=== PATIENT | male | born 1955 | race Caucasian/White ===

== ENCOUNTER 2019-09-11 12:20 | Outpatient (CLI) | payer MEDICARE, SELFPAY ==
--- NOTE | ~2019-09-11 | XR_ITS ---
EXAMINATION: XR chest 2V DATE: 09/11/2019 12:46 INDICATION: Essential hypertension TECHNIQUE: PA and lateral views of the chest are obtained. COMPARISON: 04/02/2012 FINDINGS: The lungs are free of acute opacities. There is no pleural effusion or pneumothorax. The ca rdiomediastinal silhouette is normal. There is moderate thoracic spondylosis. There are changes of in terval right total shoulder arthroplasty. IMPRESSION: 1. No acute cardiopulmonary abnormality. Reviewed, dictated and finalized at location A.
== END 2019-09-11 12:21 | disposition home or self-care (01) ==
PROVIDERS: PCP Family Medicine; Visit Provider Family Medicine
DX: I10 Essential (primary) hypertension (principal); R06.00 Dyspnea, unspecified
CPT/HCPCS: 71046

== ENCOUNTER 2019-10-18 15:42 | Outpatient (CLI) | payer MEDICARE, SELFPAY ==
--- NOTE | ~2019-10-18 | CT_ITS ---
EXAMINATION: CT brain wo/w con DATE: 10/18/2019 16:27 INDICATION: Headache TECHNIQUE: Computed tomography (CT) of the head was performed without and with 100 mL Omnipaque-350 i ntravenous contrast. Sagittal and coronal reconstructions were performed. Automated exposure control and iterative reconstruction technique were employed. The dose-length product was 1210.67 mGy-cm. COMPARISON: None FINDINGS: No acute intracranial hemorrhage, acute infarction or abnormal extra axial fluid collection. Ventricl es are normal and symmetric. No mass/mass effect. Moderate mucosal thickening in the bilateral ethmoi d and maxillary sinuses change of bilateral maxillary sinus antral window procedures. Small left and trace right pleural effusions. Orbits are normal. No abnormally enhancing lesions identified. No evid ent cerebral artery aneurysm or hemodynamically significant stenosis. IMPRESSION: 1. Normal brain. No acute intracranial process or abnormally enhancing lesions. 2. Sinus disease with moderate mucosal thickening in the bilateral ethmoid and maxillary sinuses. Reviewed, dictated and finalized at location A.
[2019-10-18 16:17] LABS: Estimated Glomerular Filt Rate > 60
== END 2019-10-18 15:43 | disposition home or self-care (01) ==
PROVIDERS: PCP Family Medicine; Visit Provider Family Medicine
DX: R51 Headache (principal); J32.9 Chronic sinusitis, unspecified
CPT/HCPCS: 36415; 70470; Q9967

== ENCOUNTER 2021-05-26 01:03 | Day surgery (SDC) | payer MEDICARE, SELFPAY ==
[2021-05-13 14:27] VITALS: BMI 28.0
[2021-05-26 07:41] VITALS: BP 144/88; PULSE 79; RESP 18; TEMP 37.4; O2SAT 99
--- NOTE | 2021-05-26 07:45 | P.PNAN_ITS ---
Anes - Initial Pre Proc Eval Procedure: Operation Date: 05/26/21 08:30 Proposed Procedures p Screening Colonoscopy - Delta Michael MD Date/Time: 05/26/21 07:45 Surgeon: Delta Michael MD Pre Op Diagnosis: neoplasm screening Patient Data Age: 66 Gender: M Height: 1.83 m Weight: 92.3 kg Last Vital Signs Temp 37.4 C 05/26/21 07:41 Pulse 79 05/26/21 07:41 Resp 18 05/26/21 07:41 BP 144/88 H 05/26/21 07:41 Pulse Ox 99 05/26/21 07:41 Allergies Allergy/AdvReac Type Severity Reaction Status Date / Time No Known Allergies Allergy Mild Verified 05/26/21 07:40 Home Medications Medication Instructions Recorded Confirmed Type No Home Medications 04/01/21 05/13/21 History Patient hx anesthesia problems: none Family hx anesthesia problems: none Results Review: All pre-operative results and documents have been reviewed as part of the pre-operative evaluation. [facility] Past Medical History Medical History (Updated 04/01/21 @ 08:54 by Nikolas Sim MD) Essential (primary) hypertension Mixed hyperlipidemia Osteoarthritis Screen for colon cancer Vitamin D deficiency, unspecified Surgical History Surgical History (Updated 05/26/21 @ 07:46 by Anjel Moreno MD) H/O colonoscopy H/O wrist surgery History of ankle surgery History of elbow surgery History of shoulder surgery Family History Family History Father Hypertension Family history of diabetes mellitus in first degree relative Family history of coronary artery disease Mother Family history of malignant neoplasm Social History Social History Smoking status: Never smoker Alcohol intake: current Living arrangements: alone Spiritual care concerns: No Anes - Eval Final PreProcedure Day of Procedure 05/26/21 07:45 Patient weight: overweight Heart: regular rate and rhythm Lungs: clear to auscultation Airway: Mallampati scale class II Neurological: alert and oriented Last oral intake: >/= 8 hours ASA classification: II Emergent: no Anesthetic plan: proceed Anesthesia type and monitoring: general GIVS and standard monitoring Results Review: All pre-operative results and documents have been reviewed as part of the pre-operative evaluation. Informed Consent: The patient's anesthetic plan and its attendant risks and benefits were discussed with the patient/family/POA. Questions were solicited and answers provided to the satisfaction of the patient/family/POA.
[2021-05-26] MEDS: LACTATED RINGERS 1,000 ML 150 ML IV CONT (07:46)
--- NOTE | 2021-05-26 08:05 | P.CONGI_ITS ---
Assessment and Plan Assessment and plan (1) Screen for colon cancer: Code(s): Z12.11 - Encounter for screening for malignant neoplasm of colon Status: Acute Assessment and Plan: Patient presents today for screening colonoscopy. Appears to be at average risk for colon polyps. GI Consult Note Consult date/time: 05/26/21 08:05 HPI: Nelson Maciel is a 66 year old male Presents for screening colonoscopy. Patient's current weight appetite bowel movements are normal. He denies abdom inal pain. He has had no bleeding. His last colonoscopy by Dr Blood in 2014 was unremarkable. Patient reports a very distant history of diverticulitis. Perhaps 10 years ago. His family history is noncontributory. Review of Systems Review of Systems: All systems reviewed & are unremarkable except as noted in HPI and below PMFSH Past Medical History Medical History (Updated 04/01/21 @ 08:54 by Nikolas Smi MD) Essential (primary) hypertension Mixed hyperlipidemia Osteoarthritis Screen for colon cancer Vitamin D deficiency, unspecified Surgical History Surgical History (Updated 05/26/21 @ 07:46 by Anjel Moreno MD) H/O colonoscopy H/O wrist surgery History of ankle surgery History of elbow surgery History of shoulder surgery Family History Family History Father Hypertension Family history of diabetes mellitus in first degree relative Family history of coronary artery disease Mother Family history of malignant neoplasm Social History Social History Smoking status: Never smoker Alcohol intake: current Living arrangements: alone Spiritual care concerns: No Meds Home Medications and Allergies Home Medications Medication Instructions Recorded Confirmed Type No Home Medications 04/01/21 05/13/21 History Allergies Allergy/AdvReac Type Severity Reaction Status Date / Time No Known Allergies Allergy Mild Verified 05/26/21 07:40 Vital Signs Vital Signs - 24 hr 05/26/21 07:41 Temperature 99.4 F Pulse Rate 79 Respiratory Rate 18 Blood Pressure 144/88 H Pulse Oximetry 99 Exam Narrative: Physical exam reveals patient be alert. Vital signs are stable. HEENT exam is unremarkable. Patient is anicteric. Lungs are clear to auscultation and percussion. Heart is without murmur or extra sounds. Abdominal exam bowel sounds are present soft nontender with no organomegaly. Digital external rectal exam is normal.
[2021-05-26 08:59] VITALS: BP 93/58; PULSE 58; RESP 16; O2SAT 100
[2021-05-26 09:09] VITALS: BP 104/69; PULSE 56; RESP 16; O2SAT 100
[2021-05-26 09:19] VITALS: BP 118/69; PULSE 54; RESP 18; O2SAT 100
== END 2021-05-26 09:30 | disposition home or self-care (01) ==
PROVIDERS: PCP Family Medicine; Visit Provider Internal Medicine Gastroenterology
PROC: 0DJD8ZZ Inspection of Lower Intestinal Tract, Via Natural or Artificial Opening Endoscopic (ICD-10-PCS; CPT 45378; principal; 2021-05-26 08:30)
DX: Z12.11 Encounter for screening for malignant neoplasm of colon (principal); K64.8 Other hemorrhoids; K57.30 Diverticulosis of large intestine without perforation or abscess without bleeding; I10 Essential (primary) hypertension; E78.2 Mixed hyperlipidemia; M19.90 Unspecified osteoarthritis, unspecified site; E55.9 Vitamin D deficiency, unspecified
CPT/HCPCS: G0121; J2704; J7120

== ENCOUNTER 2022-08-20 08:40 | Outpatient (CLI) | payer MEDICARE, SELFPAY ==
--- NOTE | ~2022-08-20 | XR_ITS ---
XR shoulder LT min 2V DATE: 08/20/2022 09:13 INDICATION: Chronic left shoulder pain TECHNIQUE: 4 views COMPARISON: None FINDINGS: No fracture or dislocation, periosteal reaction or bone destruction of the left shoulder. Chronic smoothly approximately 2 x 7.5 mm calcification is noted adjacent to the posterior aspect of the left humeral head. Old healed posterolateral left seventh rib fracture deformity. There is degenerative spurring of the thoracic spine. IMPRESSION: No left shoulder fracture, dislocation or bone destruction Reviewed, dictated and finalized at location L.
--- NOTE | ~2022-08-20 | XR_ITS ---
XR hip LT min 2V DATE: 08/20/2022 09:12 INDICATION: Anterior left hip pain TECHNIQUE: AP and lateral views of left hip COMPARISON: None FINDINGS: Mild left hip osteoid arthritis. No fracture, dislocation, avascular necrosis or bone destr uction of the left hip. Pubic symphysis and left sacroiliac joint are normally aligned. IMPRESSION: Mild left hip osteoarthritis Reviewed, dictated and finalized at location L.
--- NOTE | ~2022-08-20 | XR_ITS ---
XR lumbar spine 2-3V DATE: 08/20/2022 09:12 INDICATION: Back pain TECHNIQUE: AP, lateral, coned lateral lumbosacral views COMPARISON: None FINDINGS: There is moderate loss of height and mild anterior wedging of T12, likely due to old compre ssion fracture. There is degenerative change in the lower thoracic spine. Moderately severe degenerat j luis disc disease at T12-L1. Moderately prominent degenerative disease at L1-2. Mild degenerative disc disease at L2-3, L3-4, L4-5. There is degenerative change at the apophyseal joints particularly at L4-5 and L5-S1, with associated grade 1 anterolisthesis at L4-5. Included lower thoracic and lumbar pedicles are intact. The exception of T12, no fracture or bone debbie truction is noted. The sacroiliac joints are intact. IMPRESSION: Mild to moderate likely chronic compression fracture of T12 Multilevel degenerative disc disease, greatest at T12-L1 and L1-2 Grade 1 anterolisthesis at L4-5 due to degenerative change at the apophyseal joints Reviewed, dictated and finalized at location L. IMPRESSION: Mild to moderate likely chronic compression fracture of T12 Multilevel degenerative disc disease, greatest at T12-L1 and L1-2 Grade 1 anterolisthesis at L4-5 due to degenerative change at the apophyseal beatris ints
[2022-08-20 09:57] LABS: Hematocrit 45.1 % (42.0-52.0); Hemoglobin 14.7 g/dL (14.0-18.0); Mean Corpuscular HGB Conc 32.6 g/dl (32-36); Mean Corpuscular Hemoglobin 28.3 pg (26-34); Mean Corpuscular Volume 86.9 fl (80-100); Mean Platelet Volume 10.2 fl (7.4-10.4); Platelet Count Result 286 k/mm3 (150-375); Red Blood Count 5.19 M/mm3 (4.6-6.20); Red Cell Distribution Width 13.8 % (11.5-14.5)
[2022-08-20 10:07] LABS: Alanine Aminotransferase 20 U/L (6-50); Albumin Level 4.4 g/dL (3.5-5.1); Alkaline Phosphatase 55 U/L (38-126); Anion Gap 6 mmol/L (8-16); Aspartate Amino Transferase 30 U/L (17-59); Bilirubin,Total 0.6 mg/dL (0.2-1.3); Blood Urea Nitrogen 15 mg/dL (9-20); Calcium 8.8 mg/dL (8.4-10.2); Carbon Dioxide 25 mmol/L (22-30); Chloride 109 mmol/L (98-107); Cholesterol 155 mg/dL (0-200); Estimated Glomerular Filt Rate > 60; Glucose 101 mg/dL (65-110); HDL Direct 39 mg/dL; Potassium 4.4 mmol/L (3.4-5.0); Sodium 140 mmol/L (137-145); Triglycerides 104 mg/dL (<150)
[2022-08-20 10:18] LABS: LDL Cholesterol Direct 91 mg/dL
[2022-08-20 10:38] LABS: Prostate Specific Antigen 1.2 ng/mL (< OR = 4.0); Vitamin D 25 Hydroxy 39.8 ng/mL
== END 2022-08-20 08:41 | disposition home or self-care (01) ==
LOC: ANHIMG 08:54
PROVIDERS: PCP Family Medicine; Visit Provider Nurse Practitioner Family
DX: M16.12 Unilateral primary osteoarthritis, left hip (principal); M48.54XA Collapsed vertebra, not elsewhere classified, thoracic region, initial encounter for fracture; M43.16 Spondylolisthesis, lumbar region; I10 Essential (primary) hypertension; E78.2 Mixed hyperlipidemia; E55.9 Vitamin D deficiency, unspecified; Z12.5 Encounter for screening for malignant neoplasm of prostate
CPT/HCPCS: 36415; 72100; 73030; 73502; 80053; 80061; 82306; 84153; 84443; 85027; G0103

== ENCOUNTER 2023-07-15 06:50 | Outpatient (CLI) | payer MEDICARE, SELFPAY ==
--- NOTE | ~2023-07-15 | XR_ITS ---
Right Knee Technique: AP, lateral, and sunrise views were obtained. Clinical History: Pain Findings: No fracture or dislocation is seen. There is osteophyte formation, predominantly the medial joint line, intercondylar notch, and at the patella.. Soft tissues are unremarkable. No joint effusi on is seen. Impression: Degenerative change, as above. Reviewed, dictated and finalized at location M. Impression: Degenerative change, as above.
--- NOTE | ~2023-07-15 | XR_ITS ---
AP view of the pelvis and AP and lateral views of the right hip Clinical history: Pain Findings: No acute fracture or dislocation is seen. Osseous alignment is anatomic. There is mild spur ring at the superolateral acetabular margins. Soft tissues are unremarkable. Impression: Mild degenerative change of both hip joints. Reviewed, dictated and finalized at location . Impression: Mild degenerative change of both hip joints.
== END 2023-07-15 06:51 | disposition home or self-care (01) ==
PROVIDERS: PCP Physician Assistant Medical; Visit Provider Physician Assistant Medical
DX: M25.551 Pain in right hip (principal); G89.29 Other chronic pain; M25.561 Pain in right knee
CPT/HCPCS: 73502; 73562

== ENCOUNTER 2023-08-05 16:23 | Outpatient (CLI) | payer MEDICARE, SELFPAY ==
--- NOTE | ~2023-08-05 | MR_ITS ---
EXAMINATION: MR knee RT wo con DATE: 08/05/2023 17:17 INDICATION: Right knee pain TECHNIQUE: Magnetic resonance imaging (MRI) of the right knee was performed without intravenous contr ast. Sequences included coronal PD-weighted FSE, coronal PD-weighted FS FSE, sagittal T2-weighted FS E, sagittal PD-weighted FS FSE and axial PD weighted fat saturated FSE. COMPARISON: Right knee radiographs dated 07/15/2023 FINDINGS: Medial compartment: There is medial extrusion of the medial meniscal body with complex tear extending from the anterior b lisset to the posterior horn. There is full/near full-thickness chondral ulceration with underlying suba rticular edema-like signal change along portions of the anterior to central weightbearing medial femo ral condyle and at the medial margin of the medial tibial plateau. Lateral compartment: There is a tear, likely complex along the inner third of the body of the lateral meniscus is small re gion of partial-thickness chondral fissuring involving greater than 50% of the cartilage thickness bu t without degenerative subchondral changes at the posterior aspect lateral tibial plateau and smaller region at the central aspect of the anterior weightbearing lateral femoral condyle. Patellofemoral compartment: Partial-thickness chondral ulceration and fissuring with mild underlying cortical irregularity at the medial patellar facet and patellar apical ridge. Additional. Deep chondral ulceration with underlyin g cortical irregularity at the medial and lateral trochlea and intervening trochlear groove. Ligaments and tendons: Anterior and posterior cruciate ligaments are normal. The medial collateral ligament and fibular kvng ateral ligament complex are normal. The patellar tendon is normal. Mild distal quadriceps tendinopath y. The visualized medial and lateral hamstring tendons as well as the iliotibial band are normal. Fluid: Physiologic amount of fluid in the joint space with extension of a small amount of fluid along the po pliteal recess. No loose osteochondral bodies identified. Osseous/other: Bone alignment is normal. No fracture or pathologic marrow replacing process. IMPRESSION: 1. Complex tear of the body and posterior horn of the medial meniscus. 2. Small tear, likely complex involving the inner third of the body of the lateral meniscus. 3. Tricompartmental osteoarthritis, moderate to severe with high-grade chondral malacia the medial co mpartment, mild to moderate with additional high-grade chondromalacia in the patellofemoral compartme nt and mild with small regions of moderate grade chondromalacia in the lateral compartment. Reviewed, dictated and finalized at location A. IMPRESSION: 1. Complex tear of the body and posterior horn of the medial meniscus. 2. Small tear, likely complex involving the inner third of the body of the late ral meniscus. 3. Tricompartmental osteoarthritis, moderate to severe with high-grade chondral malacia the medial compartment, mild to moderate with additional high-grade ch ondromalacia in the patellofemoral compartment and mild with small regions of m oderate grade chondromalacia in the lateral compartment.
== END 2023-08-05 16:24 | disposition home or self-care (01) ==
PROVIDERS: PCP Family Medicine; Visit Provider Nurse Practitioner Family
DX: S83.231D Complex tear of medial meniscus, current injury, right knee, subsequent encounter (principal); X58.XXXD Exposure to other specified factors, subsequent encounter
CPT/HCPCS: 73721

== ENCOUNTER 2023-09-09 07:10 | Outpatient (CLI) | payer MEDICARE, SELFPAY ==
--- NOTE | ~2023-09-09 | CT_ITS ---
EXAMINATION: CT LE RT wo con DATE: 09/09/2023 09:22 INDICATION: Right knee osteoarthritis for preoperative planning. TECHNIQUE: High resolution computed tomography (CT) of the right lower extremity from the hip through the ankle was performed without intravenous contrast. Additional sagittal and coronal reconstruction s were performed. Automated exposure control and iterative reconstruction technique were employed. Th e dose-length product was 1656.31 mGy-cm. COMPARISON: Right knee radiographs dated 07/15/2023 and MRI dated 08/05/2023 FINDINGS: Bone alignment is normal. No suspected osteonecrosis. There is an age-indeterminate nondisplaced frac ture across the base of the medial intercondylar eminence which is not appreciated on the prior radio graphs. No fracture line is evident on the intervening MRI although the wall is mild increased marrow signal at this location which was interpreted as secondary to osteoarthritis with chondromalacia louise ng the medial side of the intercondylar eminence. No other lesions suspicious for fracture identified . There is severe osteoarthritis at the medial compartment of the right knee with regions of full-thick ness cartilage loss with subarticular eburnation and cystlike changes. At least mild osteoarthritis i n the lateral compartment with small marginal osteophytes at the periphery of the lateral compartment with small central subchondral osteophyte at the posterior medial aspect of the lateral tibial plate au suggesting overlying high-grade chondromalacia. Mild to moderate patellofemoral osteoarthritis wit h additional moderate size marginal osteophytes and and irregularity with a few small central subchon dral osteophytes at both the patellar and trochlear sides of the joint space consistent with addition al overlying high-grade chondromalacia. Additional mild osteoarthritis at the right hip, ankle subtalar and naviculocuneiform joints. There i s a 5.5 x 3.1 x 1.7 cm intramuscular lipoma within the soleus muscle. Musculature of the right lower limb and visualized right hemipelvis otherwise unremarkable. Physiologic amount fluid in the joint sp aces. No pathologically enlarged right pelvic or inguinal lymphadenopathy. IMPRESSION: 1. Small nondisplaced likely avulsion fracture of the medial intracondylar eminence at the right knee . There was some marrow edema at this location although without an evident fracture line on the prior MRI and this may be subacute. 2. Severe medial compartment predominant tricompartmental osteoarthritis at the right knee. Reviewed, dictated and finalized at location A. IMPRESSION: 1. Small nondisplaced likely avulsion fracture of the medial intracondylar chichi ence at the right knee. There was some marrow edema at this location although w ithout an evident fracture line on the prior MRI and this may be subacute. 2. Severe medial compartment predominant tricompartmental osteoarthritis at the right knee.
--- NOTE | 2023-09-09 07:30 | ECG_ITS ---
SEE SCANNED COPY FOR CONFIRMED REPORT MTDD
[2023-09-09 08:34] LABS: Hematocrit 46.7 % (42.0-52.0); Hemoglobin 15.2 g/dL (14.0-18.0)
[2023-09-09 08:39] LABS: Albumin Level 4.7 g/dL (3.5-5.1); Estimated Glomerular Filt Rate > 60; Glucose 97 mg/dL (65-110)
== END 2023-09-09 07:11 | disposition home or self-care (01) ==
LOC: ANHIMG 07:17
PROVIDERS: PCP Family Medicine; Visit Provider Orthopaedic Surgery
DX: Z01.818 Encounter for other preprocedural examination (principal); E78.2 Mixed hyperlipidemia; M17.11 Unilateral primary osteoarthritis, right knee; I10 Essential (primary) hypertension
CPT/HCPCS: 36415; 73700; 82040; 82565; 82947; 85014; 85018; 93005

== ENCOUNTER 2023-11-10 11:51 | Outpatient (CLI) | payer MEDICARE, SELFPAY ==
[2023-11-10 13:07] LABS: Basophils Absolute Auto 0.1 K/mm3 (0.0-0.1); Eosinophils Absolute Auto 0.3 K/mm3 (0-0.3); Eosinophils Percent Auto 3.8 % (0-4.4); Hematocrit 46.7 % (42.0-52.0); Hemoglobin 15.2 g/dL (14.0-18.0); Immature Granulocyte Absolute 0.03 K/mm3 (0.00-0.031); Immature Granulocyte Percent A 0.4 % (0-0.5); Lymphocytes Percent Auto 28.8 % (18.3-44.2); Mean Corpuscular HGB Conc 32.5 g/dl (32-36); Mean Corpuscular Hemoglobin 28.3 pg (26-34); Mean Corpuscular Volume 86.8 fl (80-100); Mean Platelet Volume 10.1 fl (7.4-10.4); Monocytes Absolute Auto 0.8 K/mm3 (0.1-0.6); Monocytes Percent Auto 10.6 % (2.6-8.5); Neutrophils Absolute Auto 4.2 K/mm3 (1.3-6.7); Neutrophils Percent Auto 55.4 % (45.5-73.1); Platelet Count Result 294 k/mm3 (150-375); Red Blood Count 5.38 M/mm3 (4.6-6.20); Red Cell Distribution Width 13.5 % (11.5-14.5); White Blood Count 7.7 K/mm3 (4.5-10.0)
[2023-11-10 13:25] LABS: Albumin Level 4.7 g/dL (3.5-5.1); Estimated Glomerular Filt Rate > 60; Glucose 86 mg/dL (65-110)
[2023-11-10 13:46] LABS: Urine Cotinine NEGATIVE
[2023-11-10 14:16] LABS: MRSA (PCR) NOT DETECTED (NOT DETECTE)
== END 2023-11-10 11:52 | disposition home or self-care (01) ==
LOC: ANHSURGERY 11:54
PROVIDERS: PCP Family Medicine; Visit Provider Orthopaedic Surgery
DX: Z01.818 Encounter for other preprocedural examination (principal); M17.11 Unilateral primary osteoarthritis, right knee
CPT/HCPCS: 80307; 82040; 82565; 82947; 83036; 85025; 87641

== ENCOUNTER 2023-12-02 01:11 | Day surgery (SDC) | payer MEDICARE, SELFPAY ==
[2023-11-10 11:25] VITALS: BP 144/82; PULSE 58; RESP 16; TEMP 37.2; O2SAT 99
[2023-11-10 11:59] VITALS: BMI 29.6
--- NOTE | 2023-11-10 12:13 | PC.NURSE ---
Report to the Outpatient Waiting Room, entrance under the green pavilion located off [facility], at time _0600_ on date _[id number]_. Planned Procedure Time: _0730_. Time changes happen often and if your time is changed the preop area will call you the afternoon before. - You and your visitor will be asked to self-screen and do not enter if you have any COVID symptoms. - A mask is optional within the hospital at this time. Patients may have clear liquids (water, carbonated beverages, clear teas, apple juice) until 3 hours prior to surgery with a maximum of 20 ounces. - No food from midnight until time of surgery Take the following medications with a SIP of water the morning of surgery: ___None DO NOT STOP ANY OF YOUR OTHER PRESCRIPTION MEDICATIONS PRIOR TO SURGERY ?EXCEPT THE FOLLOWING Medications to discontinue per physician Meloxicam Date to take last ixni___[id number] Please no make-up, nail french, hairspray, perfume, deodorant, or body powder the day of surgery. No jewelry (including any body piercings) or valuables the day of surgery, leave them at home. Please take a shower or bath the night before, or the morning of, surgery with an antibacterial soap. Wear comfortable, loose fitting clothing. - Jewelry must be removed prior to entering the operating room. Rings and piercings that are not removed may be cut off. - The hospital will not accept responsibility for valuables. - Please leave all valuables, including medications, at home the day of surgery. If you are going home after surgery, a licensed charter driver must drive you home. - NO public transportation without another adult if you receive anesthesia. - We recommend that an adult stay with you for 24 hours following discharge. - We also recommend that you do not drive, make important decision, drink alcoholic beverages, or take any drugs that were not prescribed by your health care provider for at least 24 hours after your discharge time. Follow any additional instructions given to you from your surgeon. If you or anyone in your household have experienced Covid symptoms in the past week, please notify your surgeon or the nurse liaison at the phone number below for possible testing. Telephone instructions given to _Nelson and Rox__and asked if any additional questions and then verbalized understanding. Patient advised to call surgeon office or pre surgery nurse liaison [phone] if any additional questions.
[2023-12-02] VITALS (8 sets, daily range): BP systolic 126–167; BP diastolic 68–90; PULSE 50–63; RESP 13–16; TEMP 36.6–37.2; O2SAT 97–100
--- NOTE | ~2023-12-02 | XR_ITS ---
[id number] Ordering provider: Vinny Ramos MD History: . RIGHT CUSTOM TKA, POST-OP . Comparison: None. FINDINGS: BONES: No acute fracture or dislocation. JOINT SPACES: Right total knee arthroplasty. SOFT TISSUES: Postoperative changes seen in the subcutaneous tissues. IMPRESSION: No acute osseous abnormality right knee. Consider MRI knee if there is concern for soft tissue internal derangement. Reviewed, dictated and finalized at location A.
[2023-12-02] MEDS: TRANEXAMIC ACID 1,000MG/ISO100 1,000 MG/100 ML BAG 200 MG IVPB (07:00)
[2023-12-02] MEDS: LACTATED RINGERS 1,000 ML 30 ML IV CONT ×2 (07:00→09:52)
--- NOTE | 2023-12-02 07:01 | WPDANESEPPF ---
Anes - Initial Pre Proc Eval Procedure: Operation Date: 12/02/23 07:30 Proposed Procedures p Right Custom Total Knee Arthroplasty - Vinny Ramos MD Date/Time: 12/02/23 07:01 Surgeon: Vinny Ramos MD Pre Op Diagnosis: primary oa right knee Patient Data Age: 68 Gender: M Height: 1.78 m Weight: 93.7 kg Last Vital Signs Temp 37.2 C 11/10/23 11:25 Pulse 58 L 11/10/23 11:25 Resp 16 11/10/23 11:25 BP 144/82 H 11/10/23 11:25 Pulse Ox 99 11/10/23 11:25 O2 Del Method Room Air 11/10/23 11:25 Allergies Allergy/AdvReac Type Severity Reaction Status Date / Time No Known Allergies Allergy Mild Verified 11/10/23 11:59 Home Medications Medication Instructions Recorded Confirmed Type meloxicam 15 mg tablet 15 mg PO DAILY #90 tabs 05/11/23 11/10/23 Rx Laboratory Tests 12/02/23 06:31 Blood Type Pending Antibody Screen Pending Patient hx anesthesia problems: other (slow to wake) Family hx anesthesia problems: none Results Review: All pre-operative results and documents have been reviewed as part of the pre-operative evaluation. [facility] Past Medical History Medical History BMI 28.0-28.9,adult Essential (primary) hypertension Mixed hyperlipidemia Osteoarthritis Screen for colon cancer Vitamin D deficiency, unspecified Surgical History Surgical History H/O colonoscopy H/O wrist surgery History of ankle surgery History of elbow surgery History of shoulder surgery Family History Family History Father Hypertension Family history of diabetes mellitus in first degree relative Family history of coronary artery disease Mother Family history of malignant neoplasm Diabetes mellitus Amputation of leg Sibling Diabetes mellitus Social History Social History Smoking status: Never smoker Second hand tobacco smoke exposure: Yes Alcohol intake: current Substance use: never Substance use type: does not use Do You Feel Safe in your Home?: Yes Lack of Transportation: No Lack of Food: Never True Current Housing: I Have Housing Concerned About Future Housing: No Difficulty Paying Gas/Electric Bills: No Difficulty Paying for Meds: No Currently Unemployed: No Education: High School Diploma/GED Difficulty w/ Childcare or Family Care: No Living arrangements: with family Occupation/Education: occupation Additional occupation/education comments: [employer]. Gender identity (if verbalized by the patient): Male Spiritual care concerns: No Anes - Eval Final PreProcedure Day of Procedure 12/02/23 07:01 Patient weight: overweight Heart: regular rate and rhythm Lungs: clear to auscultation Airway: Mallampati scale class II Neurological: alert and oriented Last oral intake: >/= 8 hours ASA classification: II Emergent: no Anesthetic plan: proceed Anesthesia type and monitoring: general LMA and standard monitoring Results Review: All pre-operative results and documents have been reviewed as part of the pre-operative evaluation. Informed Consent: The patient's anesthetic plan and its attendant risks and benefits were discussed with the patient/family/POA. Questions were solicited and answers provided to the satisfaction of the patient/family/POA.
[2023-12-02] MEDS: ACETAMINOPHEN 500 MG TABLET 1000 MG PO (07:10)
--- NOTE | 2023-12-02 07:13 | WPDHPUPDATE1 ---
History and Physical Update Update Date/Time: 12/02/23 07:13 History and Physical has been reviewed, including an updated exam of the patient. There are NO changes in the patient's condition. Risks, benefits, and alternatives have been discussed and questions answered. Patient agrees to proceed with procedure.
[2023-12-02] MEDS: ceFAZolin 2 GM/D5W 50 ML 2 GM/50 ML BAG IVPB (07:29)
--- NOTE | 2023-12-02 07:29 | WPDANESPNB ---
Anes - Peripheral Nerve Block Date/Time: 12/02/23 07:29 I have discussed with the patient/family/POA the placement of a peripheral nerve block for post-operative pain management, including associated risks, benefits, complications, and side effects. Alternative methods of post-operative analgesia were detailed. Questions were solicited and answers provided to the satisfaction of the patient/family/POA. Time-Out: A pre-procedural Time-Out was completed immediately before starting the procedure and confirmed: Patient Identification, Site, Procedure, Patient Position and the Availability of Requisite Equipment. Clinical Indications: Acute post-operative pain management requested by the operative surgeon. Nerve Block Insertion Note Anes-nerve block: adductor canal right Patient position: supine Skin prep: chlorhexidine Needle: 22 gauge, stimulating, insulated echogenic needle. Needle length: 80 mm Technique: ultrasound Injectate: bupivacaine 0.5% with epi 5 mcg/ml (30cc - no epi) Observations: tolerated well Complications: none Procedure start time:: 722 Procedure end time:: 726
[2023-12-02] MEDS: SODIUM CHLORIDE 0.9% IV 37.7 ML, MORPHINE SULFATE INJ (*CRX) 2 MG, ROPivacaine HCL 1% 2... INFILTRATE (08:14)
--- NOTE | 2023-12-02 10:36 | SUR.PHASEI ---
1030 - updated via phone. pt awake, appropriate, without complaints.
[2023-12-02] MEDS: oxyCODONE HCL (*CRX) 5 MG TAB IR PO (11:20)
--- NOTE | 2023-12-02 13:04 | SUR.PHASEII ---
1230: Patient's vitals are stable. He did well with therapy and is unhooked from the monitors waiting for the rest of the discharge paperwork.
--- NOTE | 2023-12-02 13:42 | W.PM.PROC2 ---
Procedure Note - Detailed Date of Procedure 12/02/23 Pre-op Diagnosis Severe osteoarthritis right knee. Post-op Diagnosis Same Procedure Performed Total knee arthroplasty, right knee. Surgeon Vinny Ramos MD Dump Motor Operator Meg Peres PA-C Anesthesia General and Regional (Subsartorial block.) Findings Custom knee implants with optimal fit. No significant releases required. Description of Procedure Preoperative antibiotics were given. The limb was prepped and draped in the usual sterile fashion with a well-padded tourniquet high on the thigh. The limb was exsanguinated and the tourniquet inflated to 300 mmHg, during exposure and cementation. A longitudinal incision was created just medial to the patella. A trivector approach to the knee was performed. Arthrotomy was taken down through the joint capsule. No significant releases were initially taken. The femur was exposed and the F1 jig was applied. The coring tool was used to remove the cartilage for the F2 jig to sit flush with the bone. The jig was pinned and the distal cut carefully taken. Caliper measurements confirmed appropriate bony resections according to the preoperative templated plan. The F4 cutting jig for the femur was applied, at the standard rotation. The AP and anterior chamfer cuts were taken. The F5 jig was applied and the posterior chamfer cuts were taken. The tibia was prepared using the T1 jig, after removing cartilage for the jig contact points. Proper alignment was checked with the alignment nova. The tibia was cut using the T1u guide. Gap balancing was performed. Gap measurements were taken and the knee was trialed. Excellent alignment and soft tissue balancing was confirmed. The posterior cruciate ligament was recessed along the proximal tibia. The patella was cut for resurfacing. Three lug holes were drilled. Meniscal remnants were removed. The trial components were assembled. Excellent range of motion and proper soft tissue balancing were confirmed throughout the full range of motion. Patellar tracking was excellent. The knee was copiously irrigated periodically throughout the procedure. The real implants were cemented into position. Excess cement was carefully removed. The wound was closed in layers with interrupted #1 Vicryl suture, 2-0 strata fix suture, 0 strata fix suture, 2-0 strata fix suture. Steri-Strips placed on the skin with the knee flexed. Sterile bulky dressing applied. The patient was brought to the recovery room in stable condition. There were no complications. Physician assistant infant teacher, Meg Peres PA-C, required for surgery; including patient positioning, draping, tissue retraction, maintaining instrument position, cement removal, wound closure, and dressing placement. Implants Conformis Custom total knee arthroplasty. Cemented. Cruciate retaining. 6C insert. 41 mm oval patella. Estimated Blood Loss 200 Drains No Complications No immediate complications Condition Stable Disposition PACU [facility] Billing Surgery - Charge Forward: Surgery Billing
== END 2023-12-02 12:50 | disposition home or self-care (01) ==
PROVIDERS: PCP Family Medicine; Visit Provider Orthopaedic Surgery
PROC: (CPT 27447; principal; 2023-12-02 07:30)
DX: M17.11 Unilateral primary osteoarthritis, right knee (principal); I10 Essential (primary) hypertension; E78.2 Mixed hyperlipidemia; E55.9 Vitamin D deficiency, unspecified; G89.18 Other acute postprocedural pain; Z98.890 Other specified postprocedural states; Z80.9 Family history of malignant neoplasm, unspecified; Z82.49 Family history of ischemic heart disease and other diseases of the circulatory system
CPT/HCPCS: 64447; 27447; 36415; 73560; 80307; 82040; 82565; 82947; 83036; 85025; 86850; 86900; 86901; 87641; 97110; 97161; 97165; A9270; C1713; C1776; J0171; J0690; J1100; J1885; J2250; J2270; J2405; J2704; J2795; J3010; J7120

== ENCOUNTER 2024-01-17 10:04 | Outpatient (CLI) | payer MEDICARE, SELFPAY ==
--- NOTE | ~2024-01-17 | XR_ITS ---
XR knee RT 3V Ordering provider: Vinny Ramos MD History: . Aftercare following joint replacement surgery 12/01 . Comparison: July 15, 2023 FINDINGS: BONES: No acute fracture or dislocation. JOINT SPACES: Total knee arthroplasty. SOFT TISSUES: Normal. IMPRESSION: No acute osseous abnormality right knee. Total knee arthroplasty. Reviewed, dictated and finalized at location A.
== END 2024-01-17 10:05 | disposition home or self-care (01) ==
PROVIDERS: PCP Family Medicine; Visit Provider Orthopaedic Surgery
DX: Z47.1 Aftercare following joint replacement surgery (principal)
CPT/HCPCS: 73562

== ENCOUNTER 2024-08-15 14:50 | Outpatient (CLI) | payer MEDICARE, SELFPAY ==
--- NOTE | ~2024-08-15 | XR_ITS ---
2 views of the right clavicle CLINICAL HISTORY: Pain FINDINGS: No acute fracture or dislocation seen. Severe AC joint degenerative change present. Right g lenohumeral joint arthroplasty present. Soft tissues are unremarkable. IMPRESSION: No acute abnormality. Severe AC joint degenerative change. Glenohumeral arthroplasty. Reviewed, dictated and finalized at location .
--- NOTE | ~2024-08-15 | XR_ITS ---
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 Extra-articular bone formation is also noted, likely chronic. The acromioclavicular joint space is also limited by extra-anatomic bone formation. No discrete periprosthetic fracture is appreciated. IMPRESSION: No acute fracture is appreciated. No periprosthetic fracture is noted. Severe degenerative disease, as detailed above. Reviewed, dictated and finalized at location A.
--- OUTSIDE RECORDS SUMMARY | 2024-08-15 16:00 | XMS_ITS | Encounter Summary ---
Author Organization [employer] Address 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
--- OUTSIDE RECORDS SUMMARY | 2024-08-15 16:00 | XMS_ITS | Clinical Summary ---
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 Gender Identity Not on file Sexual Orientation Not on file Last Filed Vital Signs Vital Sign Reading Time Taken Comments Blood Pressure 136/88 04/09/2020 8:13 AM DRY END OPERATOR Pulse 86 04/09/2020 8:13 AM DRY END OPERATOR Temperature - - Respiratory Rate - - Oxygen Saturation - - Inhaled Oxygen Concentration - - Weight 94.5 kg (208 lb 6.4 oz) 04/09/2020 8:13 A M DRY END OPERATOR Height 180.3 cm (5' 11 ) 04/09/2020 8:13 AM DRY END OPERATOR Body Mass Index 29.07 04/09/2020 8:13 AM DRY END OPERATOR Plan of Treatment Health Maintenance Due Date Last Done Comments Colorectal Cancer Screening Colonoscopy (10 Years) 1954 Hepatitis C 1972 DTaP, Tdap and Td Vaccines ( 1 - Tdap) 1973 Zoster Vaccines (1 of 2) 2004 Annual Medicare Wellness Visit 2019 Pneumococcal Vaccine: 50+ Ye ars (1 of 1 - PCV) 2019 COVID-19 Vaccine ( - 2023-2 5 season) 2024 RSV Immunization or 60+ Years (1 - 1-dose 75+ series) 2029 Meningococcal B Vaccine Aged Out No l onger eligible based on patient's age to complete this topic Meningococcal Vaccine Aged Out No seth matthieu eligible based on patient's age to complete this topic RSV Immunizations Under 20 Months Aged Out No longer eligible based on patient's age to complete this topic Insurance Care Teams Clinical Trials Specialist Relationship Specialty Start Date End Date Nikolas Sim MD [address] [place] [address] PCP - General FAMILY PRACTICE 04/09/20
--- OUTSIDE RECORDS SUMMARY | 2024-08-15 16:00 | XMS_ITS | Continuity of Care Document ---
Author Organization [facility] Address [address] [place] [address] Phone Care Team Providers Care Product Evangelist Name Role Phone Stein OD, Delta Unavailable Unavailable Procedures Procedure Date CL Replacement - Vistakon Disp W/BW Soft Tax - Medical No Charge Contact Lens Check No Charge Contact Lens Check No Charge Contact Lens Check Eye Exam, New Patient Refraction Advance Directives Directive Yes / No Effective Date File Name No Information Encounters Encounter Description Practice Location Reason(s) For Visit Diagnoses Date Provider Providers Copied on Encounter [facility], [address] [place] [address] [address], [place], [place], [id number], tel:[phone] [facility] No Information 4-200 8 Stein OD Delta. [address] , [address], [place], [place], [facility], . tel:[phone] [facility], [address] [place] [address] [address], [place], [place], [id number], [place] tel:[phone] [facility] No Information 8-200 7 Stein OD Delta. [address] , [address], [place], [place], [facility], . tel:[phone] [facility], [address] [place] [address] [address], [place], [place], [id number], tel:[phone] [facility] No Information Oct-0 5-200 7 Stein OD Delta. [address] , [address], [place], [address], [place]. tel:[phone] [facility], [address], [place], [place], [id number], tel:[phone] [facility] No Information Aug-1 2-200 7 Stein OD Delta. [address] , [address], [place], [place], [facility], [place]. tel:[phone] [facility], [address], [place], [place], [id number], [place] tel:[phone] [facility] No Information Jul-3 1-200 7 Stein OD Delta. [address] [facility] , [address], [place], [address], [place]. tel:[phone] Family History Family Member Type Diagnosis Age At Onset No Information Payers Payer name Insurance type Covered constitution party ID Authoriza tion(s) No Information Social History Type Description Quantity Date Captured Comments Sex Male Smoking Status No Information Chief Complaint And Reason For Visit No Information Reason For Referral Reason For Referral No Information History Of Present Illness Encounter Date Complaint History Of Prese nt Illness No Information Functional Status Date Functional Assessmen t No Information Instructions Date Instruction Additional Infor mation No Information Assessments Type Assessment Date No Information Patient Care Teams Name Effective Dates (start - stop) Status Members No Information
--- OUTSIDE RECORDS SUMMARY | 2024-08-15 16:00 | XMS_ITS | Clinical Summary ---
Author Organization [facility] Address [address] 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
--- OUTSIDE RECORDS SUMMARY | 2024-08-15 16:00 | XMS_ITS | Clinical Summary ---
Author Organization [facility] Address [address] [place] [address] Care Team Providers Care Cashier Greeter Name Role Phone Nikolas Sim MD Primary Care Provider [phone] [facility],non-owned Affiliates and Associated Physician Practices is amultiple site organization consisting of ambulatory clinics and hospital sitesin [place], [place], [place] and [place]. This disclosure is being madepursuant to the Care Everywhere program and may not contain all information available regarding this patient. Last updated 18.[facility] [employer] Allergies No known active allergies Medications * Be aware that medications may not be up to date on this document. Alwaysverify current medications with the patient. indomethacin (INDOCIN) 25 MG capsuleIndicati ons:Primary exertional headache Take 1 (one) capsule by mouth 2 times daily 180 capsule 4 08/19/2020 Active Active Problems Problem Noted Date Diagnosed Date Other headache syndrome 04/09/2020 Arthralgia of elbow, right 08/31/2012 Closed fracture of part of upper end of humerus 04/11/2012 Overview (01/31/2015): Closed head injury 02/23/2012 Fall 02/23/2012 L1 vertebral fracture 02/23/2012 Left pulmonary contusion 02/23/2012 Open fracture of arm 02/23/2012 Pneumothorax, traumatic 02/23/2012 Rib fracture 02/23/2012 Trauma 02/23/2012 Nasal polyps Facial pain Social History Tobacco Use Types Packs/Day Years Used Date Smoking Tobacco: Never Smokeless Tobacco: Never Alcohol Use Standard Drinks/Week Comments No 0 (1 standard drink = 0.6 oz pur e alcohol) Sex and Gender Information Value Date Recorded Sex Assigned at Not on file 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 Gender Identity Not on file Sexual Orientation Not on file Last Filed Vital Signs Vital Sign Reading Time Taken Comments Blood Pressure 146/94 12/05/2020 8:01 AM CDT Pulse 57 12/05/2020 8:01 AM CDT Temperature 36.6 C (97.8 F) 11/20/2020 3:44 PM CDT Respiratory Rate 14 07/25/2020 2:28 PM CDT Oxygen Saturation 97% 11/20/2020 3:44 PM CDT Inhaled Oxygen Concentration - - Weight 98.4 kg (217 lb) 12/05/2020 8:01 AM CDT Height 180.3 cm (5' 11 ) 12/05/2020 8:01 AM CDT Body Mass Index 30.27 12/05/2020 8:01 AM CDT Plan of Treatment Health Maintenance Due Date Last Done Comments COLOGUARD (AGES 45-75) - COLON CA SCREENING 1954 COLON MONITORING 1954 COLONOSCOPY - COLON CA SCREENING 1954 CT COLONOGRAPHY - COLON CA SCREENING 1954 Colorectal Cancer Screening 1954 FIT - COLON CA SCREENING 1954 FLEX SIG - COLON CA SCREENING 1954 LIPID TESTING 1954 HEPATITIS C SCREENING 03/11/1972 DTAP/TDAP/TD VACCINES (1 - Tdap) 1973 PNEUMOCOCCAL VACCINE 50+ (1 of 1 - PCV) 2004 ZOSTER VACCINE (1 of 2) 2004 Respiratory Syncytial Virus (RSV) Vaccine Pt: or over 60 yrs (1 - Risk 60-74 years 1-dose series) 2014 SCREENING FOR DIABETES 05/14/2020 2, 02/28/2012, 02/27/2012, Additional history exists COVID-19 VACCINE (1 - season) 2024 DEPRESSION SCREENING 05/03/2024 INFLUENZA VACCINE (Season Ended) 2025 HEPATITIS B VACCINE Aged Out No longe r eligible based on patient's age to complete this topic HIB VACCINE Aged Out No longer eligi ble based on patient's age to complete this topic HPV VACCINE Aged Out No longer eligi ble based on patient's age to complete this topic MENINGOCOCCAL (Group B) VACCINE SHARED DECISION-MAKING Aged Out No longer eligible based on patient's age to complete this topic MENINGOCOCCAL GROUPS A/C/Y/W VACCINE Aged Out No longer eligible based on patient's age to complete this topic Medical Devices Implanted Type Area Chancery Clerk Device Identifier Shelf Expiration Date Model / Serial / Lot [id number] - [id number] Implanted:Qty: 1 on 04/11/2012 by Bhupendra Werner MD at [facility] Screw Right: Shoulder 01/01/2017 [id number] / [id number] / [id number] - [id number] Implanted:Qty: 1 on 04/11/2012 by Bhupendra Werner MD at [facility] Screw Right: Shoulder 06/03/2016 [id number] / [id number] / [id number] - [id number] Implanted:Qty: 1 on 04/11/2012 by Bhupendra Werner MD at [facility] Screw Right: Shoulder 12/01/2016 [id number] / [id number] / [id number] - [id number] Implanted:Qty: 1 on 04/11/2012 by Bhupendra Werner MD at [facility] Screw Right: Shoulder 10/01/2016 [id number] / [id number] / [id number] - [id number] Implanted:Qty: 1 on 04/11/2012 by Bhupendra Werner MD at [facility] Right: Shoulder 01/01/2017 [id number] / [id number] / [id number] - [id number] Implanted:Qty: 1 on 04/11/2012 by Bhupendra Werner MD at [facility] Right: Shoulder 07/01/2016 [id number] / [id number] / [id number] - [id number] Implanted:Qty: 1 on 04/11/2012 by Bhupendra Werner MD at [facility] Right: Shoulder 10/02/2015 [id number] / [id number] / [id number] - [id number] Implanted:Qty: 1 on 04/11/2012 by Bhupendra Werner MD at [facility] Right: Shoulder 12/02/2015 [id number] / [id number] / [id number] Bill Only Shld Fx Depuy Implanted:Qty: 1 on 04/11/2012 at [facility] [employer] DEPUY / / Description:REVERSE TOTAL SH OULDER [id number] - [id number] Implanted:Qty: 2 on 04/11/2012 by Bhupendra Werner MD at [facility] Right: Shoulder [employer] 07/01/2013 [id number] / [id number] / [id number] Description:Smartset GHV Gen tamicin Bone Cement 40 g Procedures Procedure Name Priority Date/Time Associated Diagnosis Comments BASIC METABOLIC PANEL (CALCIUM TOTAL) Routine 03/01/2012 2:40 AM CDT from Last 3 Months or Most Recently Relevant to Health Maintenance Results * (ABNORMAL) BASIC METABOLIC PANEL (CALCIUM TOTAL) (03/01/2012 2:40 AM CDT) BUN 15 7 - 26 mg/dL [facility] Creatinine 0.9 0.6 - 1.2 mg/dL [facility] eGFR by MDRD > 60 ML/MIN [facility] Comment: Chronic kidney disease: <60 ml/min Kidney failure: <15 ml/min Based on BSA of 1.73m2. Sodium 136 136 - 145 mmol/L [facility] Potassium 4.0 3.5 - 4.5 mmol/L [facility] Chloride 105 98 - 107 mmol/L [facility] CO2 18(L) 22 - 29 mmol/L [facility] Glucose 102 70 - 115 mg/dL [facility] Calcium 8.2(L) 8.4 - 10.2 mg/dL [facility] Anion Gap 17 8 - 18 [facility] BUN/Creatinine Ratio 16 7 - 23 [facility] Osmolality Calculation 268(L) 270 - 300 mOsm/kg [facility] Venous blood specimen (specimen) 03/01/2012 2:40 AM CDT 03/01/2012 3:34 AM CDT us Historical Provider LAB - CHEMISTRY ORDERABLE S Final Result [facility] [address] [phone] from Last 3 Months or Most Recently Relevant to Health Maintenance [place] [facility] [place] Address: [address] [address] [place] [address] MANAGED MEDICARE ADV [employer] Member Subscriber Plan / Payer (Ef fective 2011-Present) Name:Silvio Armendariz Relation to Subscriber:Self Name:Silvio Armendariz Payer ID:[id number] (NAIC) Type:O Address: [address] [employer] [address] [place] [address] Advance Directives * FULL RESUSCITATION (Latest Code Status on File) Date Activated Date Inactivated Comments 04/11/2012 12:06 PM 04/12/2012 10:53 AM Care Teams Cashier Greeter Relationship Specialty Start Date End Date Nikolas Sim MD [address] [place] [address] PCP - General 04/19/12
== END 2024-08-15 14:51 | disposition home or self-care (01) ==
PROVIDERS: PCP Family Medicine; Visit Provider Nurse Practitioner Adult Health
DX: M25.511 Pain in right shoulder (principal); Z87.81 Personal history of (healed) traumatic fracture
CPT/HCPCS: 73000; 73030

== ENCOUNTER 2024-09-09 12:26 | Outpatient (CLI) | payer MEDICARE, SELFPAY ==
--- NOTE | ~2024-09-09 | MR_ITS ---
MRI of the right shoulder Technique: Axial proton-density fat-sat images, coronal proton density fat-sat and T2 fat-sat images, and sagittal T1-weighted and T2 fat-sat images were acquired. 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 There is adv anced degenerative change of the AC joint with extensive bony productive change about the acromion an d distal clavicle. Coracoclavicular ligaments appear intact. Rotator cuff is poorly evaluated. Suspected complete tears of the supraspinatus and infraspinatus ten dons with probable mild fatty atrophy of these muscle bellies. Subscapularis tendon thought to be int act. No other soft tissue mass or fluid collection evident. Impression: Limited exam due to extensive susceptibility artifact related to glenohumeral joint arthroplasty. No definite hardware complication apparent on this exam. Advanced AC joint degenerative change. Probable complete tears of the supraspinatus and infraspinatus tendons. Probable associated mild fatt y atrophy of these muscle bellies. Reviewed, dictated and finalized at [facility]. Impression: Limited exam due to extensive susceptibility artifact related to glenohumeral j oint arthroplasty. No definite hardware complication apparent on this exam. Advanced AC joint degenerative change. Probable complete tears of the supraspinatus and infraspinatus tendons. Probabl e associated mild fatty atrophy of these muscle bellies.
--- OUTSIDE RECORDS SUMMARY | 2024-09-09 12:30 | XMS_ITS | Clinical Summary ---
Author Organization [facility] Address [address] [place] [address] Care Team Providers Care Housekeeper Child Care Name Role Phone Nikolas Sim MD Primary Care Provider Source Comments [facility],non-owned Affiliates and Associated Physician Practices is amultiple site organization consisting of ambulatory clinics and hospital sitesin [place], [place], [place] and [place]. This disclosure is being madepursuant to the Care Everywhere program and may not contain all information available regarding this patient. 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 Gender Identity Not on file Sexual Orientation [...] this topic Medical Devices Implanted Type Area Remediation Consultant Device Identifier Shelf Expiration Date Model / Serial / Lot [id number] - [id number] Implanted:Qty: 1 on 04/11/2012 by Bhupendra Werner MD at [facility] [place] Right: Shoulder 01/01/2017 [id number] / [id number] / [id number] - [id number] Implanted:Qty: 1 on 04/11/2012 by Bhupendra Werner MD at [facility] [place] Right: Shoulder 06/03/2016 [id number] / [id number] / [id number] - [id number] Implanted:Qty: 1 on 04/11/2012 by Bhupendra Werner MD at [facility] [place] Right: Shoulder 12/01/2016 [id number] / [id number] / [id number] - [id number] Implanted:Qty: 1 on 04/11/2012 by Bhupendra Werner MD at [facility] [place] Right: Shoulder 10/01/2016 [id number] / [id number] / [id number] - [id number] [employer] Implanted:Qty: 1 on 04/11/2012 by Bhupendra Werner MD at [facility] [place] Right: Shoulder 01/01/2017 [id number] / [id number] / [id number] - [id number] Implanted:Qty: 1 on 04/11/2012 by Bhupendra Werner MD at [facility] [place] Right: Shoulder 07/01/2016 [id number] / [id number] / [id number] - [id number] Implanted:Qty: 1 on 04/11/2012 by Bhupendra Werner MD at [facility] [place] Right: Shoulder 10/02/2015 [id number] / [id number] / [id number] - [id number] Implanted:Qty: 1 on 04/11/2012 by Bhupendra Werner MD at [facility] [place] Right: Shoulder 12/02/2015 [id number] / [id number] / [id number] Bill Only Shld Fx Depuy Implanted:Qty: 1 on 04/11/2012 at [facility] [place] [employer] DEPUY / / Description:REVERSE TOTAL SH OULDER [id number] - [id number] Implanted:Qty: 2 on 04/11/2012 by Bhupendra Werner MD at [facility] [place] Right: Shoulder [employer] 07/01/2013 [id number] / [id number] / [id number] Description:Smartset GHV Gen tamicin Bone Cement 40 g Procedures Procedure Name Priority Date/Time Associated Diagnosis Comments BASIC METABOLIC PANEL (CALCIUM TOTAL) Routine 03/01/2012 2:40 AM CDT from Last 3 Months or Most Recently Relevant to Health Maintenance Results * (ABNORMAL) BASIC METABOLIC PANEL (CALCIUM TOTAL) (03/01/2012 2:40 AM CDT) BUN 15 7 - 26 mg/dL [facility] Creatinine 0.9 0.6 - 1.2 mg/dL [facility] eGFR by MDRD > 60 ML/MIN [facility] Comment: Chronic kidney disease: <60 ml/min Kidney failure: <15 ml/min Based on BSA of 1.73m2. Sodium 136 136 - 145 mmol/L [facility] Potassium 4.0 3.5 - 4.5 mmol/L [facility] Chloride 105 98 - 107 mmol/L [facility] CO2 18(L) 22 - 29 mmol/L [facility] Glucose 102 70 - 115 mg/dL [facility] Calcium 8.2(L) 8.4 - 10.2 mg/dL [facility] Anion Gap 17 8 - 18 [facility] BUN/Creatinine Ratio 16 7 - 23 [facility] Osmolality Calculation 268(L) 270 - 300 mOsm/kg [facility] Venous blood specimen (specimen) 03/01/2012 2:40 AM CDT 03/01/2012 3:34 AM CDT us Historical Provider LAB - CHEMISTRY ORDERABLE S Final Result [facility] [address] [phone] from Last 3 Months or Most Recently Relevant to Health Maintenance Insurance [facility] [place] [place] Address: [address] [address] [place] [address] MANAGED MEDICARE ADV [facility] Member Subscriber Plan / Payer (Ef fective 2011-Present) Name:Silvio Armendariz Relation to Subscriber:Self Name:Silvio Armendariz Payer ID:[id number] (NAIC) Type:O Address: [address] [place] [address] Advance Directives * FULL RESUSCITATION (Latest Code Status on File) Date Activated Date Inactivated Comments 04/11/2012 12:06 PM 04/12/2012 10:53 AM Care Teams Housekeeper Child Care Relationship Specialty Start Date End Date Nikolas Sim MD [address] [place] [address] PCP - General 04/19/12
--- OUTSIDE RECORDS SUMMARY | 2024-09-09 12:30 | XMS_ITS | Clinical Summary ---
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 Gender Identity Not on file Sexual Orientation Not on file Last Filed Vital Signs Vital Sign Reading Time Taken Comments Blood Pressure 136/88 04/09/2020 8:13 AM CUSTOMER SUPPORT ANALYST Pulse 86 04/09/2020 8:13 AM CUSTOMER SUPPORT ANALYST Temperature - - Respiratory Rate - - Oxygen Saturation - - Inhaled Oxygen Concentration - - Weight 94.5 kg (208 lb 6.4 oz) 04/09/2020 8:13 A M CUSTOMER SUPPORT ANALYST Height 180.3 cm (5' 11 ) 04/09/2020 8:13 AM CUSTOMER SUPPORT ANALYST Body Mass Index 29.07 04/09/2020 8:13 AM CUSTOMER SUPPORT ANALYST Plan of Treatment Health Maintenance Due Date Last Done Comments Colorectal Cancer Screening Colonoscopy (10 Years) 1954 Hepatitis C 1972 DTaP, Tdap and Td Vaccines ( 1 - Tdap) 1973 Pneumococcal Vaccine: 50+ Ye ars (1 of 1 - PCV) 2004 Zoster Vaccines (1 of 2) 2004 Annual Medicare Wellness Visit 2019 COVID-19 Vaccine ( - 2023-2 5 [...] to complete this topic Insurance Care Teams Research Clerk Relationship Specialty Start Date End Date Nikolas Sim MD [address] [address] PCP - General FAMILY PRACTICE 04/09/20
--- OUTSIDE RECORDS SUMMARY | 2024-09-09 12:30 | XMS_ITS | Continuity of Care Document ---
Author Organization [facility] Address [address] [place] [address] Phone Care Team Providers Care Casting Agent Name Role Phone Stein OD, Delta Unavailable [...] Diagnoses Date Provider Providers Copied on Encounter [facility], [address] [place] [address] [address], [place], [place], [id number], tel:[phone] [facility] No Information 4-200 8 Stein OD Delta. [address], [place], [place], [facility], . tel:[phone] [facility], [address] [place] [address] [address], [place], [place], [id number], [place] tel:[phone] [facility] No Information 8-200 7 Stein OD [facility]. [address] , [address], [place], [facility], . tel:[phone] [facility], [address] [place] [address] [address], [place], [place], [id number], tel:[phone] [facility] No Information Oct-0 5-200 7 Stein OD [facility]. [address] [facility] [address] , [address], [place], [address], [place]. tel:[phone] [facility], [address], [place], [place], [id number], tel:[phone] [facility] No Information Aug-1 2-200 7 Stein OD Delta. [address] , [address], [place], [facility], [place]. tel:[phone] [facility], [address], [place], [place], [id number], [place] tel:[phone] [facility] No Information Jul-3 1-200 7 Stein OD Delta. [address] , [address], [place], [address], [place]. tel:[phone] Family History Family Member Type Diagnosis Age At Onset No Information Payers Payer name Insurance type Covered republican ID Authoriza tion(s) No Information Social History [...]
--- OUTSIDE RECORDS SUMMARY | 2024-09-09 12:30 | XMS_ITS | Clinical Summary ---
Author Organization [facility] Address [address] 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
--- OUTSIDE RECORDS SUMMARY | 2024-09-09 12:30 | XMS_ITS | Encounter Summary ---
Author Organization [facility] Address 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
== END 2024-09-09 12:27 | disposition home or self-care (01) ==
PROVIDERS: PCP Family Medicine; Visit Provider Nurse Practitioner Adult Health
DX: M19.011 Primary osteoarthritis, right shoulder (principal)
CPT/HCPCS: 73221